=== PATIENT | female | born 1945 | race Caucasian/White ===

== ENCOUNTER → 2017-07-31 | Outpatient (CLI) | payer OTHER ==
[~2017-07-31] MED LIST: ANAS1TAB6 PO; CALCTAB5 PO; CETI10TA10 PO; MISCCAP80 PO; MULT-506 PO; OMEG10007 PO; SPIR50TA PO
--- NOTE | 2017-08-04 15:29 | MAMMOGRAPHY REPORT ---
BILATERAL DIGITAL SCREENING MAMMOGRAM TOMOSYNTHESIS WITH CAD: 07/31/2017 CLINICAL HISTORY: Routine screening. Patient has no complaints. TECHNIQUE: Breast tomosynthesis in addition to standard 2D mammography was performed. Current study was also evaluated with a Computer Aided Detection (CAD) system. COMPARISON: Comparison is made to exams dated: 07/17/2016 mammogram, 04/07/2016 mammogram, 08/22/2015 m ammogram, 06/13/2015 mammogram, 11/17/2014 ultrasound, and 11/17/2014 mammogram - [facility]. BREAST COMPOSITION: The tissue of both breasts is heterogeneously dense, which may obscure small mas ses. FINDINGS: No suspicious masses, calcifications, or areas of architectural distortion are noted in ei ther breast. There has been no significant interval change compared to prior exams. There are stable post surgical changes in the right upper outer quadrant from prior lumpectomy. Mild diffuse right b reast skin thickening is decreased, and is likely secondary to radiation therapy. Scattered bilatera l benign-appearing calcifications are not significantly changed. IMPRESSION: ACR BI-RADS CATEGORY 2: BENIGN There is no mammographic evidence of malignancy. A 1 year screening mammogram is recommended. The pa tient will receive written notification of the results. Approximately 10% of breast cancers are not detected with mammography. A negative mammographic report should not delay biopsy if a clinically suggestive mass is present. Siena Salazar M.D. /:07/31/2017 15:36:07 Marketing Intelligence Analyst: Tisha CUTLER(Venkata)(Amadeo)(GAUDENCIO), [facility] letter sent: Normal 1/2 BI-RADS Code: ACR BI-RADS Category 2: Benign
== END | disposition home or self-care (01) ==
LOC: C.MAMM 14:29
PROVIDERS: ATTEND Internal Medicine Hematology & Oncology
DX: Z12.31 Encounter for screening mammogram for malignant neoplasm of breast (principal)

== ENCOUNTER → 2017-08-06 | Outpatient (CLI) | payer OTHER ==
[~2017-08-06] MED LIST changes: +GADAVIST IV PRN
--- NOTE | 2017-08-07 12:51 | MAMMOGRAPHY REPORT ---
BREAST MRI OF BOTH BREASTS : 08/06/2017 CLINICAL HISTORY: History of right breast cancer status post lumpectomy September 2015 as well as radi ation therapy. Also with history of a left subareolar excision which yielded a papilloma. COMPARISON: Comparison is made to exams dated: 07/31/2017 mammogram, 07/17/2016 mammogram, 07/17/2016 breast MRI, 07/13/2015 breast MRI, and 08/22/2015 MRI biopsy - [facility]. Technique: The patient was placed prone in a dedicated breast imaging coil. Precontrast axial T1-olivia ghted, axial T2-weighted fat saturation, and axial T1-weighted fat saturation images were obtained. After the administration of 8.5 mL of Gadavist IV contrast, sequential T1-weighted fat saturation marycruz ges were obtained. Subtraction images were obtained of the dynamic contrast enhanced sequences, and 3-D reformations were performed. The [employer] software was used for kinetic analysis. Findings: There is mild background parenchymal enhancement involving bilateral breasts. Again noted are postsu rgical from prior lumpectomy and postradiation changes including mild diffuse skin and trabecular thi ckening and enhancement of the right breast. There are no suspicious enhancing masses or areas of ab normal enhancement within either breast. There is no evidence of axillary adenopathy. The chest wall structures are negative. Visualized ext ramammary soft tissues are grossly unremarkable. IMPRESSION: ACR BI-RADS CATEGORY 2: BENIGN No MRI evidence of malignancy in either breast. Recommend routine bilateral screening mammograms in one year. Additionally, consider continuation with yearly screening breast MRI given that the right breast cancer was mammographically occult and only seen on MRI. Siena Salazar M.D. /:08/06/2017 17:06:48 Car Greaser: architectural sales consultant, [facility] letter sent: Normal 1/2 BI-RADS Code: ACR BI-RADS Category 2: Benign
== END | disposition home or self-care (01) ==
LOC: C.MRI 10:47
PROVIDERS: ATTEND Physician Assistant Medical
DX: D05.11 Intraductal carcinoma in situ of right breast (principal)

== ENCOUNTER → 2017-08-18 | Outpatient (CLI) | payer OTHER ==
[~2017-08-18] MED LIST changes: -GADAVIST IV PRN
[2017-08-18 15:21] VITALS: BP 128/74; PULSE 71; TEMP 37.1; O2SAT 96
--- NOTE | 2017-08-18 16:23 | Radiation Oncology Follow-Up ---
Radiation Oncology Follow-Up Date of Visit Aug 18, 2017. Reason For Visit An annual follow-up Radiation Completion Date finished 01-01-2016 Diagnosis (1) Ductal carcinoma in situ (DCIS) of breast Status: Resolved Onset Date: 08/22/2015 Stage: 0 Permanent Comment: DIAGNOSIS: Right breast, DCIS, grade 2, ER/AZ positive, Tis , stage 0 TREATMENT: 1. MRI guided biopsy of the right breast revealing DCIS, Estrogen positive and progesterone receptor positive 2. Lumpectomy - 09/18/2015 3. Re-excision for margins - 10/09/2015 4. Status post completion of radiation therapy 01/01/2016 received 6240 cGy Last Edited By: Mag Zhang on Jan 14, 2016 13:12 History of Present Illness Ms. Cornelius presented with a mammogram in November 2014 following bloody left nipple discharge which showed no mammographic or sonographic abnormality. She was referred to Dr. Dietz who ordered an MRI of both breasts on 11/30/2014 which revealed a 3 mm rim-enhancing mass in the immediate subareolar right breast and a dominant 7.6 mm oval area enhancement within the right breast. At this point , the recommendation was to do a repeat mammogram and MRI of the breast. The MRI of the breasts were completed on 07/16/2015 which showed an enhancing 7 mm mass in the right breast which was stable compared to the previous exam. They did note slight irregular shape and washout pattern which was concerning and they recommended a biopsy. Also noted was an area of non-mass enhancement in the left breast as well which was stable and most likely benign. The patient underwent an MRI guided biopsy on 08/22/2015 which revealed ductal carcinoma in situ that was grade 2. DCIS was present in 5 separate foci measuring 0.4-0.2 cm in greatest dimension. The tumor was solid in pattern and there was no necrosis noted. The tumor was also estrogen receptor positive and progesterone receptor positive. Dr. Dietz to the patient for a lumpectomy on 09/17/2015 which revealed residual ductal carcinoma in situ measuring up to 3 mm in the greatest dimension. There was also noted to be a positive margin, so the patient was brought back to the operating room on 10/09/2015 for reexcision which revealed no residual invasive carcinoma or ductal carcinoma in situ. The patient is seen Dr. Hill has recommended anti-hormonal therapy as well as adjuvant radiation therapy. We are now seeing the patient in consultation. She underwent CT simulation and recommendation was for conventional therapy. Treatment was given from 11/13/2015 to 01/01/2016. She received 6240 cGy. Interim History She has been doing well over the past year. She denies any changes to her breast. She has no masses or tenderness no change in the axilla. This had no swelling of her arm. She is up-to-date on mammography. She is on anastrozole and denies side effects. Allergies Coded Allergies: Adhesives (Unverified Allergy, Unknown, REDNESS RASH, 10/09/15) SOME TAPES,BANDAIDS,STERIDRAPE Neomycin (Verified Allergy, Unknown, RASH, 10/09/15) Nickel (Verified Allergy, Unknown, RASH, 10/09/15) Penicillins (Verified Allergy, Unknown, RASH, 10/09/15) Tetracycline (Verified Allergy, Unknown, RASH, 10/09/15) Home Medications Scheduled Anastrozole (Anastrozole), 1 TAB PO DAILY Calcium (Caltrate), 600 MG PO DAILY Fish Oil (Sanborn-3), 1 CAP PO DAILY Multivitamin (Multivitamin), 1 TAB PO QAM Probiotic Product (Probiotic), 1 CAP PO QAM Scheduled PRN Cetirizine Hcl (Zyrtec), 10 MG PO DAILY PRN for PRN Hctz/Spironolactone 25MG/25MG (Aldactazide 25MG/25MG), 1 TAB PO DAILY PRN for LEG SWELLING Review of Systems Gastrointestinal: Symptoms: WNL Oral: Symptoms: No Problems Respiratory: Symptoms: WNL Urinary: Symptoms: WNL Skin: Symptoms: No Problems Breast: Right Upper Arm Measurement: 33.5 Right Mid Arm Measurement: 27.0 Right Wrist Measurement: 17.1 Left Upper Arm Measurement: 33.1 Left Mid Arm Measurement: 27.0 Left Wrist Measurement: 18.0 Arm Dominence: Right Patient Cosmetic Evaluation: Good Staff Cosmetic Evalaluation: Good Physical Exam Vital Signs Date Time Temp Pulse Resp B/P (MAP) Pulse Ox O2 Delivery O2 Flow Rate FiO2 08/18/17 15:21 37.1 71 18 128/74 96 Fatigue: None General Appearance: no apparent distress Eyes: normal inspection, EOMI ENT: normal ENT inspection, hearing grossly normal Neck: no adenopathy, thyroid normal Respiratory/Chest: lungs clear, no respiratory distress, no accessory muscle use Breast: Breast examination reveals well-healed incisions of the right breast. There are no masses or tenderness and no axillary adenopathy. She has no skin retractions or nipple changes. Using the Basalt score cosmesis she has a in excellent outcome. The left breast showed no masses or tenderness and no axillary adenopathy. Cardiovascular: regular rate, rhythm, no gallop, no murmur Abdomen: non tender, soft Extremities: no pedal edema Neurologic/Psychiatric: no motor/sensory deficits, alert, normal mood/affect Skin: warm/dry Pain Management Patient Reports Pain: No Side: Bilateral Patient Preferred Pain Scale: 0 - 10 Initial Pain Intensity: 0.0 Pain Management Plan She denies pain therefore requires no pain management. Laboratory Laboratory Results: pending Pathology Pathology Results: not applicable Imaging Imaging Studies: were reviewed, and pertinent findings noted below Imaging Comments Patient: MICH CORNELIUS [facility] Rec: [id number] Address1: [address] [place] [address] [facility]: [id number] Date: 1945 Sex: F Ref Phy: Haley Miles M.D. Att Phy: Ammon Smith D.O. Kiara Phy: James Vázquez M.D. Inter Phy: Siena Salazar MD [facility] Zip: [place] [address] SC: [id number] Report #: [id number] Launch Check Out: ELVA Diagnosis: ASYMPTOMATIC Service Date: 07/31/17 MNE: [id number] Ordering Dr: Ammon Smith D.O. CC: Ammon Smith D.O. CONF: DICTATED BY: Siena Salazar MD MAMMOGRAPHY REPORT BILATERAL DIGITAL SCREENING MAMMOGRAM TOMOSYNTHESIS WITH CAD: 07/31/2017 CLINICAL HISTORY: Routine screening. Patient has no complaints. TECHNIQUE: Breast tomosynthesis in addition to standard 2D mammography was performed. Current study was also evaluated with a Computer Aided Detection (CAD ) system. COMPARISON: Comparison is made to exams dated: 07/17/2016 mammogram, 04/07/2016 mammogram, 08/22/2015 mammogram, 06/13/2015 mammogram, 11/17/2014 ultrasound, and mammogram - [facility]. BREAST COMPOSITION: The tissue of both breasts is heterogeneously dense, which may obscure small masses. FINDINGS: No suspicious masses, calcifications, or areas of architectural distortion are noted in either breast. There has been no significant interval change compared to prior exams. There are stable post surgical changes in the right upper outer quadrant from prior lumpectomy. Mild diffuse right breast skin thickening is decreased, and is likely secondary to radiation therapy. Scattered bilateral benign-appearing calcifications are not significantly changed. IMPRESSION: ACR BI-RADS CATEGORY 2: BENIGN There is no mammographic evidence of malignancy. A 1 year screening mammogram is recommended. The patient will receive written notification of the results. Approximately 10% of breast cancers are not detected with mammography. A negative mammographic report should not delay biopsy if a clinically suggestive mass is present. Siena Salazar M.D. ah/:07/31/2017 15:36:07 Bonderizer: Tisha CUTLER(Venkata)(Amadeo)(GAUDENCIO), [facility] letter sent: Normal 1/2 BI-RADS Code: ACR BI-RADS Category 2: Benign Dictated by: Siena Salazar MD Signed by: Siena Salazar MD Patient: MICH CORNELIUS [facility] Rec: [id number] Address1: [address] [place] [address] Address2: Acct ID: [id number] Date: 1945 Sex: F Ref Phy: Mag Zhang PA-C Att Phy: Mag Zhang PA-C Kiara Phy: James Vázquez M.D. Inter Phy: Siena Salazar MD [facility] [place] [address] SC: [id number] Report #: [id number] Launch Check Out: PHILL Diagnosis: HX RIGHT BREAST CA Service Date: 08/06/17 MNE: [id number] Ordering Dr: Mag Zhang PA-C CC: Mag Zhang PA-C CONF: DICTATED BY: Siena Salazar MD MAMMOGRAPHY REPORT BREAST MRI OF BOTH BREASTS : 08/06/2017 CLINICAL HISTORY: History of right breast cancer status post lumpectomy September 2015 as well as radiation therapy. Also with history of a left subareolar excision which yielded a papilloma. COMPARISON: Comparison is made to exams dated: 07/31/2017 mammogram, 07/17/2016 mammogram, 07/17/2016 breast MRI, 07/13/2015 breast MRI, and 08/22/2015 MRI biopsy - [facility]. Technique: The patient was placed prone in a dedicated breast imaging coil. Precontrast axial T1-weighted, axial T2-weighted fat saturation, and axial T1- weighted fat saturation images were obtained. After the administration of 8.5 mL of Gadavist IV contrast, sequential T1-weighted fat saturation images were obtained. Subtraction images were obtained of the dynamic contrast enhanced sequences, and 3-D reformations were performed. The [employer] software was used for kinetic analysis. Findings: There is mild background parenchymal enhancement involving bilateral breasts. Again noted are postsurgical from prior lumpectomy and postradiation changes including mild diffuse skin and trabecular thickening and enhancement of the right breast. There are no suspicious enhancing masses or areas of abnormal enhancement within either breast. There is no evidence of axillary adenopathy. The chest wall structures are negative. Visualized extramammary soft tissues are grossly unremarkable. IMPRESSION: ACR BI-RADS CATEGORY 2: BENIGN No MRI evidence of malignancy in either breast. Recommend routine bilateral screening mammograms in one year. Additionally, consider continuation with yearly screening breast MRI given that the right breast cancer was mammographically occult and only seen on MRI. Siena Salazar M.D. ah/:08/06/2017 17:06:48 Bonderizer: private watchman, [facility] letter sent: Normal 1/2 BI-RADS Code: ACR BI-RADS Category 2: Benign Dictated by: Siena Salazar MD Signed by: Siena Salazar MD Assessment & Plan Plan: Continue regular follow-up with Dr. Smith, and Dr. Dukes. She is scheduled for her next mammogram. She is not scheduled for MRI. I reviewed with her the results and recommendations by the radiologist. Her original tumor was not found on mammography. This was found on an MRI. In discussing these findings she was comfortable to go forward with scheduling the MRI. This will be scheduled closer to July. Authorization will need to be obtained. Today we discussed smoking cessation once again. She is having a difficult time with smoke cessation. She is under a lot of stress taking care of her elderly mother and her who is being treated for pancreatic cancer. He is now 5 years post diagnosis with inoperable pancreatic cancer and receiving chemotherapy. We asked her to return to our office in 1 year. She will call if she has any questions or concerns in the interim. Assessment & Plan (Attending) I spent 20 minutes speaking to the patient and performing examination. I spent 15 minutes reviewing information and completeness note. Copy To Brennon Dukes M.D.; Ammon Smith D.O. Problem Qualifiers (1) Ductal carcinoma in situ (DCIS) of breast: Laterality: right Qualified Codes: D05.11 - Intraductal carcinoma in situ of right breast
== END | disposition home or self-care (01) ==
LOC: C.ONC 15:08
PROVIDERS: ATTEND Physician Assistant Medical
DX: Z08 Encounter for follow-up examination after completed treatment for malignant neoplasm (principal); Z92.3 Personal history of irradiation; Z85.3 Personal history of malignant neoplasm of breast

== ENCOUNTER → 2017-12-15 | Outpatient (CLI) | payer OTHER ==
[~2017-12-15] MED LIST changes: -ANAS1TAB6 PO; +ANAS1TAB7 PO
--- NOTE | 2017-12-15 13:35 | DIAGNOSTIC IMAGING REPORT ---
LEFT THUMB 3 VIEWS HISTORY: LEFT THUMB PAIN COMPARISON: None. FINDINGS: There is no fracture or dislocation. Mild osteoarthritis at the first carpometacarpal joint and interphalangeal joint of the thumb. This is demonstrated by small marginal osteophytes. Mild soft tissue swelling within the left thumb. No radiopaque foreign bodies. IMPRESSION: No fractures within the left thumb. Mild osteoarthritis. Electronically signed by: Raghu Rasheed M.D. 12/15/2017 1:34 PM Dictated Date/Time: 12/15/2017 1:32 PM
== END | disposition home or self-care (01) ==
LOC: C.RDSM 13:20
PROVIDERS: ATTEND Physician Assistant
DX: M79.645 Pain in left finger(s) (principal)